=== PATIENT | male | born 1945 | race African-American/Black ===

== ENCOUNTER 2021-02-17 23:52 | Inpatient (IN) | payer OTHER, MEDICARE ==
[2021-02-18] MEDS ORDERED: Piperacillin/Tazobactam 4.5 GM VIAL ONE (01:05)
[2021-02-18] MEDS ORDERED: Morphine 4 MG/ML VIAL ONE (01:05)
[2021-02-18] MEDS ORDERED: Ondansetron PF 4 MG/2 ML Vial ONE (01:13)
[2021-02-18 01:42] LABS: #Eosinphils 0.2 thou/uL (0.0-0.7); #Lymphocytes 0.9 thou/uL (1.20-3.40); #Monocytes 0.9 thou/uL (0.11-0.59); #Neutrophils 11.2 thou/uL (1.40-6.50); %Basophils 0.2 % (0.0-1.0); %Eosinophils 1.4 % (0.0-10.0); %Lymphocytes 6.6 % (21.0-51.0); %Monocytes 6.5 % (0.0-10.0); %Neutrophils 85.4 % (42.0-75.0); Hemoglobin 10.9 g/dL (14.0-18.0); Mean Corpuscular HGB CONC 31.4 g/dL (32.0-36.0); Mean Corpuscular Hemoglobin 28.4 pg (27.0-31.0); Mean Corpuscular Volume 90.7 fL (78.0-98.0); Mean Platelet Volume 6.9 fL (7.4-10.4); Platelet Count 276 thou/uL (130-400); RBC Distribution Width 12.6 % (11.5-14.5); Red Blood Cell (RBC) Count 3.84 mill/uL (4.70-6.10); White Blood Cell (WBC) Count 13.1 thou/uL (4.8-10.8)
[2021-02-18 01:48] LABS: PTT 28.8 sec (22.9-36.1); Prothrombin Time 13.6 sec (12.0-14.7)
[2021-02-18 02:05] LABS: ALT (SGPT) 72 U/L (8-55); AST (SGOT) 84 U/L (5-34); Albumin 3.8 g/dL (3.4-4.8); Alkaline Phosphatase 55 U/L (40-110); Anion Gap 15 mmol/L (10-20); BUN (Urea Nitrogen) 39 mg/dL (8.4-25.7); Bilirubin, Total 0.3 mg/dL (0.2-1.2); Calc. Creatinine Clearance 0 mL/min (70-130); Calcium 8.9 mg/dL (7.8-10.44); Carbon Dioxide 25 mmol/L (23-31); Chloride 101 mmol/L (98-107); Globulin 3.1 g/dL (2.4-3.5); Glucose 203 mg/dL (83-110); Lipase 55 U/L (8-78); Potassium 4.5 mmol/L (3.5-5.1); Protein, Total 6.9 g/dL (5.8-8.1); Sodium 136 mmol/L (136-145)
[2021-02-18] MEDS ORDERED: hydrALAZINE 20 MG/ML VIAL SLOW IVP PRN (02:33)
[2021-02-18] MEDS ORDERED: Ondansetron PF 4 MG/2 ML Vial IVP PRN (02:33)
[2021-02-18] MEDS ORDERED: Dextrose 50% Abboject 50 ML SYRINGE SLOW IVP PRN ×3 (02:33→15:44)
[2021-02-18] MEDS ORDERED: Dextrose 5% in Water 1,000 ML IV PRN ×3 (02:33→15:44)
[2021-02-18] MEDS ORDERED: Morphine 2 MG/ML VIAL SLOW IVP PRN (02:40)
[2021-02-18] MEDS ORDERED: Cyclobenzaprine 10 MG TAB PO PRN (02:42)
[2021-02-18] MEDS ORDERED: Lactated Ringer's 1,000 ML IV SCH (02:45)
[2021-02-18 02:55] LABS: CKMB 14.7 ng/mL (0-6.6)
[2021-02-18] MEDS: Acetaminophen 325 MG TAB PO SCH ×3 (04:31→17:41)
[2021-02-18] MEDS: Ibuprofen 200 MG TAB PO SCH ×3 (04:32→17:45)
[2021-02-18 04:34] VITALS: BMI 32.6
[2021-02-18] MEDS ORDERED: Insulin Regular 300 UNITS/3 ML VIAL SC PRN (05:18)
[2021-02-18] MEDS ORDERED: TETANUS AND DIPHTHERIA TOX/PF 0.5 ML DISP.SYRIN IM ONE (09:00)
[2021-02-18] MEDS: Ascorbic Acid 500 mg Chewable Tablet PO SCH ×2 (09:03→21:17)
[2021-02-18] MEDS: Gabapentin 300 MG CAP PO SCH ×3 (09:03→21:16)
[2021-02-18] MEDS: Thiamine 100 MG TAB PO SCH (09:05)
[2021-02-18] MEDS: Insulin Regular 300 UNITS/3 ML VIAL SC PRN ×2 (09:18→12:45)
[2021-02-18] MEDS ORDERED: TETANUS, DIPHTHERIA TOX,ADULT (TDVAX) 0.5 ML VIAL IM ONE (11:45)
[2021-02-18] MEDS ORDERED: traMADol HCl 50 MG TAB PO SCH (12:15)
[2021-02-18] MEDS ORDERED: Iopamidol 370 76% 100 ML VIAL ONE (12:46)
[2021-02-18] MEDS ORDERED: Insulin Regular 300 UNITS/3 ML VIAL SC SCH (16:00)
[2021-02-18] MEDS: metFORMIN 500 MG TAB PO SCH (16:49)
[2021-02-18] MEDS: HumaLOG 300 UNITS/3 ML VIAL SC SCH (16:51)
[2021-02-18] MEDS: traMADol HCl 50 MG TAB PO SCH (17:43)
[2021-02-18] MEDS ORDERED: Lantus 1000 UNITS/10 ML VIAL SC SCH ×2 (21:00)
[2021-02-19] MEDS: traMADol HCl 50 MG TAB PO SCH ×5 (00:09→23:54)
[2021-02-19] MEDS: Acetaminophen 325 MG TAB PO SCH ×5 (00:09→23:53)
[2021-02-19 02:29] LABS: SARS-CoV-2 PCR by NAA Not Detected (NotDetected)
[2021-02-19] MEDS: Ibuprofen 200 MG TAB PO SCH ×3 (03:19→18:01)
[2021-02-19 06:27] LABS: #Eosinphils 0.5 thou/uL (0.0-0.7); #Lymphocytes 1.2 thou/uL (1.20-3.40); #Monocytes 1.2 thou/uL (0.11-0.59); #Neutrophils 8.6 thou/uL (1.40-6.50); %Basophils 0.3 % (0.0-1.0); %Eosinophils 4.2 % (0.0-10.0); %Lymphocytes 10.8 % (21.0-51.0); %Monocytes 10.5 % (0.0-10.0); %Neutrophils 74.2 % (42.0-75.0); Hemoglobin 11.2 g/dL (14.0-18.0); Mean Corpuscular HGB CONC 31.3 g/dL (32.0-36.0); Mean Corpuscular Hemoglobin 28.5 pg (27.0-31.0); Mean Corpuscular Volume 91.2 fL (78.0-98.0); Mean Platelet Volume 6.6 fL (7.4-10.4); Platelet Count 283 thou/uL (130-400); RBC Distribution Width 12.9 % (11.5-14.5); Red Blood Cell (RBC) Count 3.91 mill/uL (4.70-6.10); White Blood Cell (WBC) Count 11.5 thou/uL (4.8-10.8)
[2021-02-19 06:42] LABS: Lactic Acid 1.6 mmol/L (0.5-2.2)
[2021-02-19 06:48] LABS: ALT (SGPT) 58 U/L (8-55); AST (SGOT) 67 U/L (5-34); Albumin 3.9 g/dL (3.4-4.8); Alkaline Phosphatase 55 U/L (40-110); Anion Gap 13 mmol/L (10-20); BUN (Urea Nitrogen) 42 mg/dL (8.4-25.7); Bilirubin, Total 0.5 mg/dL (0.2-1.2); Calc. Creatinine Clearance 32 mL/min (70-130); Calcium 9.1 mg/dL (7.8-10.44); Carbon Dioxide 27 mmol/L (23-31); Chloride 97 mmol/L (98-107); Glucose 123 mg/dL (83-110); Potassium 5.4 mmol/L (3.5-5.1); Protein, Total 7.9 g/dL (5.8-8.1); Sodium 132 mmol/L (136-145)
[2021-02-19 06:52] LABS: Critical Call Chem Troponin I RESULT DECREASING; Troponin I 0.743 ng/mL (< 0.028)
[2021-02-19] MEDS: Sodium Chloride 0.9% 1,000 ML IV SCH ×3 (08:28→22:14)
[2021-02-19] MEDS: Gabapentin 300 MG CAP PO SCH ×3 (08:44→22:13)
[2021-02-19] MEDS: Ascorbic Acid 500 mg Chewable Tablet PO SCH ×2 (08:44→22:13)
[2021-02-19] MEDS: HumaLOG 300 UNITS/3 ML VIAL SC SCH ×3 (08:45→17:13)
[2021-02-19] MEDS: Thiamine 100 MG TAB PO SCH (08:45)
[2021-02-19] MEDS: metFORMIN 500 MG TAB PO SCH ×2 (08:45→16:32)
[2021-02-19] MEDS ORDERED: Lantus 1000 UNITS/10 ML VIAL SC SCH ×4 (09:00→21:00)
[2021-02-19] MEDS ORDERED: Amlodipine 10 MG TAB PO SCH (17:00)
[2021-02-20] MEDS: Ibuprofen 200 MG TAB PO SCH ×3 (03:08→18:04)
[2021-02-20] MEDS: traMADol HCl 50 MG TAB PO SCH ×4 (05:27→23:57)
[2021-02-20] MEDS: Acetaminophen 325 MG TAB PO SCH ×4 (05:28→23:57)
[2021-02-20 06:03] LABS: #Eosinphils 0.4 thou/uL (0.0-0.7); #Lymphocytes 0.9 thou/uL (1.20-3.40); #Monocytes 1.2 thou/uL (0.11-0.59); #Neutrophils 8.2 thou/uL (1.40-6.50); %Basophils 0.3 % (0.0-1.0); %Eosinophils 3.8 % (0.0-10.0); %Lymphocytes 7.9 % (21.0-51.0); %Monocytes 11.1 % (0.0-10.0); %Neutrophils 76.9 % (42.0-75.0); Hemoglobin 10.5 g/dL (14.0-18.0); Mean Corpuscular HGB CONC 31.7 g/dL (32.0-36.0); Mean Corpuscular Hemoglobin 28.8 pg (27.0-31.0); Mean Corpuscular Volume 90.6 fL (78.0-98.0); Mean Platelet Volume 7.1 fL (7.4-10.4); Platelet Count 237 thou/uL (130-400); RBC Distribution Width 12.9 % (11.5-14.5); Red Blood Cell (RBC) Count 3.66 mill/uL (4.70-6.10); White Blood Cell (WBC) Count 10.7 thou/uL (4.8-10.8)
[2021-02-20 06:27] LABS: Anion Gap 17 mmol/L (10-20); BUN (Urea Nitrogen) 46 mg/dL (8.4-25.7); Calc. Creatinine Clearance 39 mL/min (70-130); Calcium 8.8 mg/dL (7.8-10.44); Carbon Dioxide 19 mmol/L (23-31); Chloride 100 mmol/L (98-107); Glucose 151 mg/dL (83-110); Phosphorus 3.7 mg/dL (2.3-4.7); Potassium 5.2 mmol/L (3.5-5.1); Sodium 131 mmol/L (136-145)
[2021-02-20] MEDS: HumaLOG 300 UNITS/3 ML VIAL SC SCH ×3 (08:31→16:56)
[2021-02-20] MEDS: metFORMIN 500 MG TAB PO SCH ×2 (08:32→16:57)
[2021-02-20] MEDS: Thiamine 100 MG TAB PO SCH (08:33)
[2021-02-20] MEDS: Amlodipine 10 MG TAB PO SCH (08:33)
[2021-02-20] MEDS: Losartan 25 MG TAB PO SCH (08:33)
[2021-02-20] MEDS: Allopurinol 100 MG TAB PO SCH (08:33)
[2021-02-20] MEDS: Ascorbic Acid 500 mg Chewable Tablet PO SCH ×2 (08:33→20:47)
[2021-02-20] MEDS: Sodium Chloride 0.9% 1,000 ML IV SCH (08:35)
[2021-02-21] MEDS: Ibuprofen 200 MG TAB PO SCH (03:59)
[2021-02-21] MEDS: Acetaminophen 325 MG TAB PO SCH ×4 (05:23→23:33)
[2021-02-21] MEDS: traMADol HCl 50 MG TAB PO SCH ×4 (05:23→23:33)
[2021-02-21] MEDS: Ascorbic Acid 500 mg Chewable Tablet PO SCH ×2 (08:17→19:54)
[2021-02-21] MEDS: Thiamine 100 MG TAB PO SCH (08:17)
[2021-02-21] MEDS: metFORMIN 500 MG TAB PO SCH ×2 (08:17→16:50)
[2021-02-21] MEDS: Losartan 25 MG TAB PO SCH (08:18)
[2021-02-21] MEDS: Amlodipine 10 MG TAB PO SCH (08:18)
[2021-02-21] MEDS: Allopurinol 100 MG TAB PO SCH (08:18)
[2021-02-21] MEDS: Senokot S 8.6-50 MG TAB PO SCH (08:18)
[2021-02-21] MEDS: HumaLOG 300 UNITS/3 ML VIAL SC SCH ×4 (08:21→16:49)
[2021-02-21] MEDS ORDERED: Lidocaine 1% (PF) 30 ML VIAL ONE ×2 (09:30→09:32)
[2021-02-21] MEDS ORDERED: Lidocaine 1% (PF) 30 ML VIAL SC SCH (09:45)
[2021-02-21] MEDS ORDERED: Ketorolac Tromethamine 30 MG/ML VIAL IVP SCH (10:00)
[2021-02-21] MEDS: Ketorolac Tromethamine 30 MG/ML VIAL IVP SCH ×2 (11:04→17:55)
[2021-02-22] MEDS: traMADol HCl 50 MG TAB PO SCH ×2 (05:09→20:12)
[2021-02-22] MEDS: Acetaminophen 325 MG TAB PO SCH ×4 (05:10→23:27)
[2021-02-22] MEDS: HumaLOG 300 UNITS/3 ML VIAL SC SCH ×3 (08:31→18:03)
[2021-02-22] MEDS: Allopurinol 100 MG TAB PO SCH (08:32)
[2021-02-22] MEDS: Amlodipine 10 MG TAB PO SCH (08:32)
[2021-02-22] MEDS: Senokot S 8.6-50 MG TAB PO SCH (08:32)
[2021-02-22] MEDS: Ascorbic Acid 500 mg Chewable Tablet PO SCH ×2 (08:32→20:13)
[2021-02-22] MEDS: metFORMIN 500 MG TAB PO SCH (08:33)
[2021-02-22] MEDS: Thiamine 100 MG TAB PO SCH (08:33)
[2021-02-22] MEDS: Losartan 25 MG TAB PO SCH (08:33)
[2021-02-22] MEDS ORDERED: traMADol HCl 50 MG TAB PO SCH (09:00)
[2021-02-22] MEDS: Ibuprofen 200 MG TAB PO SCH ×2 (11:32→18:06)
[2021-02-22] MEDS ORDERED: Bisacodyl 10 MG SUPP PR SCH (12:15)
[2021-02-23] MEDS: Ibuprofen 200 MG TAB PO SCH ×3 (02:56→18:55)
[2021-02-23] MEDS: Acetaminophen 325 MG TAB PO SCH ×4 (05:15→23:26)
[2021-02-23] MEDS: Losartan 25 MG TAB PO SCH (09:21)
[2021-02-23] MEDS: Thiamine 100 MG TAB PO SCH (09:21)
[2021-02-23] MEDS: Amlodipine 10 MG TAB PO SCH (09:21)
[2021-02-23] MEDS: Senokot S 8.6-50 MG TAB PO SCH (09:21)
[2021-02-23] MEDS: Ascorbic Acid 500 mg Chewable Tablet PO SCH ×2 (09:22→21:12)
[2021-02-23] MEDS: traMADol HCl 50 MG TAB PO SCH ×2 (09:22→21:11)
[2021-02-23] MEDS: Allopurinol 100 MG TAB PO SCH (09:22)
[2021-02-23] MEDS: HumaLOG 300 UNITS/3 ML VIAL SC SCH ×3 (09:25→16:42)
[2021-02-23] MEDS: Bisacodyl 10 MG SUPP PR SCH (11:45)
[2021-02-24] MEDS: Ibuprofen 200 MG TAB PO SCH ×3 (03:32→18:27)
[2021-02-24] MEDS: Acetaminophen 325 MG TAB PO SCH ×4 (05:26→23:48)
[2021-02-24] MEDS: Thiamine 100 MG TAB PO SCH (08:12)
[2021-02-24] MEDS: Senokot S 8.6-50 MG TAB PO SCH (08:12)
[2021-02-24] MEDS: Losartan 25 MG TAB PO SCH (08:12)
[2021-02-24] MEDS: Amlodipine 10 MG TAB PO SCH (08:12)
[2021-02-24] MEDS: traMADol HCl 50 MG TAB PO SCH ×2 (08:12→20:04)
[2021-02-24] MEDS: Allopurinol 100 MG TAB PO SCH (08:12)
[2021-02-24] MEDS: Ascorbic Acid 500 mg Chewable Tablet PO SCH ×2 (08:12→20:04)
[2021-02-24] MEDS: Bisacodyl 10 MG SUPP PR SCH (08:21)
[2021-02-24] MEDS: Atorvastatin Calcium 10 MG TAB PO SCH (09:22)
[2021-02-24] MEDS: HumaLOG 300 UNITS/3 ML VIAL SC SCH ×3 (10:21→17:01)
[2021-02-25] MEDS: Ibuprofen 200 MG TAB PO SCH (04:06)
[2021-02-25] MEDS: Acetaminophen 325 MG TAB PO SCH (05:08)
[2021-02-25 07:58] VITALS: BP 120/65; TEMP 98.5
[2021-02-25] MEDS: Atorvastatin Calcium 10 MG TAB PO SCH (08:10)
[2021-02-25] MEDS: Thiamine 100 MG TAB PO SCH (08:10)
[2021-02-25] MEDS: Amlodipine 10 MG TAB PO SCH (08:10)
[2021-02-25] MEDS: Losartan 25 MG TAB PO SCH (08:11)
[2021-02-25] MEDS: Bisacodyl 10 MG SUPP PR SCH (08:11)
[2021-02-25] MEDS: traMADol HCl 50 MG TAB PO SCH (08:11)
[2021-02-25] MEDS: Senokot S 8.6-50 MG TAB PO SCH (08:11)
[2021-02-25] MEDS: Allopurinol 100 MG TAB PO SCH (08:11)
[2021-02-25] MEDS: Ascorbic Acid 500 mg Chewable Tablet PO SCH (08:11)
== END 2021-02-25 10:15 | disposition home health service (06) | DRG 200 ==
LOC: ERS 23:52 → IMCU/EMU 02-18 02:33 → SURG A 02-18 13:31
PROVIDERS: ADMIT Surgery; ATTEND Surgery
PROC: 0W9900Z Drainage of Right Pleural Cavity with Drainage Device, Open Approach (ICD-10-PCS; principal; 2021-02-21)
DX: S27.2XXA Traumatic hemopneumothorax, initial encounter (principal); N17.9 Acute kidney failure, unspecified; S22.41XA Multiple fractures of ribs, right side, initial encounter for closed fracture; E11.9 Type 2 diabetes mellitus without complications; I10 Essential (primary) hypertension; M10.9 Gout, unspecified; R79.89 Other specified abnormal findings of blood chemistry; R74.01 Elevation of levels of liver transaminase levels; Z20.822 Contact with and (suspected) exposure to COVID-19; V89.2XXA Person injured in unspecified motor-vehicle accident, traffic, initial encounter; Z98.890 Other specified postprocedural states; Z79.84 Long term (current) use of oral hypoglycemic drugs
CPT/HCPCS: 36415; 36416; 70450; 71045; 71260; 72125; 74177; 80048; 80053; 82553; 83605; 83690; 83735; 84100; 84484; 85025; 85610; 85730; 87635; 90714; 93005; 96365; 96375; G0390; J1815; J1885; J2270; J2405; J2543; J7620; Q9967; U0003; U0005

== ENCOUNTER 2021-03-20 23:26 | Inpatient (IN) | payer OTHER, MEDICARE ==
[2021-03-21] MEDS ORDERED: Dextrose 50% Abboject 50 ML SYRINGE SLOW IVP PRN ×2 (00:11→18:01)
[2021-03-21] MEDS ORDERED: Dextrose 5% in Water 1,000 ML IV PRN ×2 (00:11→18:01)
[2021-03-21] MEDS ORDERED: hydrALAZINE 20 MG/ML VIAL SLOW IVP PRN (00:11)
[2021-03-21] MEDS ORDERED: Ondansetron PF 4 MG/2 ML Vial IVP PRN (00:11)
[2021-03-21] MEDS ORDERED: Promethazine HCl 25 MG/ML VIAL IM PRN (00:11)
[2021-03-21] MEDS ORDERED: Lactated Ringer's 1,000 ML IV SCH (00:45)
[2021-03-21 00:56] LABS: #Eosinphils 0.1 thou/uL (0.0-0.7); #Lymphocytes 1.2 thou/uL (1.20-3.40); #Monocytes 0.9 thou/uL (0.11-0.59); #Neutrophils 6.3 thou/uL (1.40-6.50); %Basophils 0.5 % (0.0-1.0); %Eosinophils 1.1 % (0.0-10.0); %Lymphocytes 13.8 % (21.0-51.0); %Monocytes 10.7 % (0.0-10.0); %Neutrophils 73.9 % (42.0-75.0); Hemoglobin 8.1 g/dL (14.0-18.0); Mean Corpuscular HGB CONC 32.2 g/dL (32.0-36.0); Mean Corpuscular Hemoglobin 29.2 pg (27.0-31.0); Mean Corpuscular Volume 90.8 fL (78.0-98.0); Mean Platelet Volume 6.8 fL (7.4-10.4); Platelet Count 299 thou/uL (130-400); RBC Distribution Width 12.4 % (11.5-14.5); Red Blood Cell (RBC) Count 2.75 mill/uL (4.70-6.10); White Blood Cell (WBC) Count 8.5 thou/uL (4.8-10.8)
[2021-03-21 01:09] LABS: INR-International Normal Ratio 1.1; Prothrombin Time 14.8 sec (12.0-14.7)
[2021-03-21] MEDS ORDERED: Acetaminophen 325 MG TAB ONE ×3 (01:16→11:15)
[2021-03-21 01:21] LABS: ALT (SGPT) 24 U/L (8-55); AST (SGOT) 20 U/L (5-34); Alkaline Phosphatase 64 U/L (40-110); Anion Gap 13 mmol/L (10-20); BUN (Urea Nitrogen) 39 mg/dL (8.4-25.7); Bilirubin, Total 0.3 mg/dL (0.2-1.2); Calc. Creatinine Clearance 0 mL/min (70-130); Calcium 8.9 mg/dL (7.8-10.44); Carbon Dioxide 24 mmol/L (23-31); Chloride 104 mmol/L (98-107); Globulin 3.2 g/dL (2.4-3.5); Glucose 102 mg/dL (83-110); Potassium 4.2 mmol/L (3.5-5.1); Protein, Total 6.2 g/dL (5.8-8.1); Sodium 137 mmol/L (136-145)
[2021-03-21] MEDS: Acetaminophen 325 MG TAB PO SCH ×4 (01:30→18:01)
[2021-03-21] MEDS ORDERED: Lactated Ringer's 500 ML IV SCH (04:30)
[2021-03-21] MEDS ORDERED: Hydrocortisone Sod Succ/PF 100 mg/2 ml Vial IVP SCH (04:30)
[2021-03-21] MEDS ORDERED: Hydrocortisone Sod Succ/PF 100 mg/2 ml Vial ONE (04:50)
[2021-03-21] MEDS ORDERED: Dexamethasone 4 MG TAB PO SCH (08:00)
[2021-03-21] MEDS ORDERED: Lidocaine 1% w/Epinephrine 1:100K 20 ML VIAL ONE (08:20)
[2021-03-21 08:23] LABS: SARS-CoV-2 NAA Rapid Test Not Detected (NotDetected)
[2021-03-21] MEDS ORDERED: Ascorbic Acid 500 mg Chewable Tablet PO SCH (09:00)
[2021-03-21] MEDS ORDERED: Zinc Sulfate 220 MG CAP PO SCH (09:00)
[2021-03-21] MEDS ORDERED: Amlodipine 10 MG TAB PO SCH (09:00)
[2021-03-21] MEDS ORDERED: Losartan 25 MG TAB PO SCH (09:00)
[2021-03-21] MEDS ORDERED: Lidocaine 1% (PF) 30 ML VIAL ONE (09:00)
[2021-03-21] MEDS ORDERED: Famotidine/PF 20 mg/2ml Vial ONE (10:17)
[2021-03-21] MEDS: Cholecalciferol (Vitamin D3) 400 UNITS TAB PO SCH (11:10)
[2021-03-21] MEDS: Ascorbic Acid 500 mg Chewable Tablet PO SCH ×2 (11:10→19:49)
[2021-03-21] MEDS: Ferrous Sulfate 325 MG TAB PO SCH ×2 (11:11→18:01)
[2021-03-21] MEDS: Famotidine/PF 20 mg/2ml Vial SLOW IVP SCH (11:11)
[2021-03-21 17:06] VITALS: BMI 32.5
[2021-03-21] MEDS: Insulin Regular 300 UNITS/3 ML VIAL SC PRN (18:27)
[2021-03-21 20:29] LABS: SARS-CoV-2 IgG Ab Reactive (NonReactive); SARS-CoV-2 IgG Index 1.89 S/CO (< 1.40)
[2021-03-22] MEDS: Acetaminophen 325 MG TAB PO SCH ×4 (00:19→18:45)
[2021-03-22 06:57] LABS: #Lymphocytes 0.9 thou/uL (1.20-3.40); #Neutrophils 7.9 thou/uL (1.40-6.50); %Basophils 0.1 % (0.0-1.0); %Eosinophils 0.4 % (0.0-10.0); %Lymphocytes 8.8 % (21.0-51.0); %Monocytes 10.6 % (0.0-10.0); %Neutrophils 80.2 % (42.0-75.0); Hemoglobin 8.6 g/dL (14.0-18.0); Mean Corpuscular HGB CONC 33.4 g/dL (32.0-36.0); Mean Corpuscular Hemoglobin 29.8 pg (27.0-31.0); Mean Corpuscular Volume 89.2 fL (78.0-98.0); Mean Platelet Volume 7.2 fL (7.4-10.4); Platelet Count 260 thou/uL (130-400); RBC Distribution Width 12.6 % (11.5-14.5); Red Blood Cell (RBC) Count 2.88 mill/uL (4.70-6.10); White Blood Cell (WBC) Count 9.8 thou/uL (4.8-10.8)
[2021-03-22 07:10] LABS: Phosphorus 3.6 mg/dL (2.3-4.7)
[2021-03-22 07:13] LABS: Anion Gap 13 mmol/L (10-20); BUN (Urea Nitrogen) 32 mg/dL (8.4-25.7); Calc. Creatinine Clearance 55 mL/min (70-130); Calcium 9.3 mg/dL (7.8-10.44); Carbon Dioxide 27 mmol/L (23-31); Chloride 104 mmol/L (98-107); Glucose 131 mg/dL (83-110); Potassium 4.1 mmol/L (3.5-5.1); Sodium 140 mmol/L (136-145)
[2021-03-22] MEDS ORDERED: Hydrocortisone Sod Succ/PF 100 mg/2 ml Vial IVP SCH (07:45)
[2021-03-22] MEDS: Senokot S 8.6-50 MG TAB PO SCH ×2 (08:36→21:20)
[2021-03-22] MEDS: Ferrous Sulfate 325 MG TAB PO SCH ×2 (08:36→21:20)
[2021-03-22] MEDS: Cholecalciferol (Vitamin D3) 400 UNITS TAB PO SCH (08:36)
[2021-03-22] MEDS: Famotidine/PF 20 mg/2ml Vial SLOW IVP SCH (08:36)
[2021-03-22] MEDS: Ascorbic Acid 500 mg Chewable Tablet PO SCH ×2 (08:36→21:20)
[2021-03-22] MEDS: Enoxaparin Sodium 40 MG/0.4 ML SYRINGE SC SCH (08:36)
[2021-03-22] MEDS: Polyethylene Glycol 3350 17 GM Packet PO SCH (08:36)
[2021-03-22] MEDS: Insulin Regular 300 UNITS/3 ML VIAL SC PRN (12:27)
[2021-03-22] MEDS: Hydrocortisone Sod Succ/PF 100 mg/2 ml Vial IVP SCH ×2 (14:38→21:20)
[2021-03-23] MEDS: Acetaminophen 325 MG TAB PO SCH ×5 (00:24→23:45)
[2021-03-23] MEDS: Hydrocortisone Sod Succ/PF 100 mg/2 ml Vial IVP SCH ×3 (05:31→21:11)
[2021-03-23 05:50] LABS: #Eosinphils 0.1 thou/uL (0.0-0.7); #Lymphocytes 1.7 thou/uL (1.20-3.40); #Monocytes 1.2 thou/uL (0.11-0.59); #Neutrophils 7.8 thou/uL (1.40-6.50); %Basophils 0.2 % (0.0-1.0); %Eosinophils 0.8 % (0.0-10.0); %Lymphocytes 15.8 % (21.0-51.0); %Monocytes 11.1 % (0.0-10.0); %Neutrophils 72.2 % (42.0-75.0); Hemoglobin 7.7 g/dL (14.0-18.0); Mean Corpuscular HGB CONC 31.7 g/dL (32.0-36.0); Mean Corpuscular Hemoglobin 28.7 pg (27.0-31.0); Mean Corpuscular Volume 90.7 fL (78.0-98.0); Mean Platelet Volume 7.3 fL (7.4-10.4); Platelet Count 320 thou/uL (130-400); RBC Distribution Width 12.8 % (11.5-14.5); Red Blood Cell (RBC) Count 2.69 mill/uL (4.70-6.10); White Blood Cell (WBC) Count 10.7 thou/uL (4.8-10.8)
[2021-03-23] MEDS: Cholecalciferol (Vitamin D3) 400 UNITS TAB PO SCH (08:40)
[2021-03-23] MEDS: Polyethylene Glycol 3350 17 GM Packet PO SCH (08:40)
[2021-03-23] MEDS: Ferrous Sulfate 325 MG TAB PO SCH ×2 (08:40→21:12)
[2021-03-23] MEDS: Enoxaparin Sodium 40 MG/0.4 ML SYRINGE SC SCH (08:40)
[2021-03-23] MEDS: Senokot S 8.6-50 MG TAB PO SCH ×2 (08:40→21:12)
[2021-03-23] MEDS: Ascorbic Acid 500 mg Chewable Tablet PO SCH ×2 (08:40→21:12)
[2021-03-24] MEDS: Hydrocortisone Sod Succ/PF 100 mg/2 ml Vial IVP SCH (05:30)
[2021-03-24] MEDS: Acetaminophen 325 MG TAB PO SCH (05:30)
[2021-03-24] MEDS: Polyethylene Glycol 3350 17 GM Packet PO SCH (09:05)
[2021-03-24] MEDS: Enoxaparin Sodium 40 MG/0.4 ML SYRINGE SC SCH (09:05)
[2021-03-24] MEDS: Senokot S 8.6-50 MG TAB PO SCH (09:06)
[2021-03-24] MEDS: Ferrous Sulfate 325 MG TAB PO SCH (09:06)
[2021-03-24] MEDS: Cholecalciferol (Vitamin D3) 400 UNITS TAB PO SCH (09:06)
[2021-03-24] MEDS: Ascorbic Acid 500 mg Chewable Tablet PO SCH (09:06)
[2021-03-24 11:54] VITALS: BP 136/72; TEMP 98.1
== END 2021-03-24 11:52 | disposition home or self-care (01) | DRG 200 ==
LOC: ERS 23:26 → ERHOLD 03-21 00:20 → SURG A 03-21 15:32
PROVIDERS: ADMIT Specialist; ATTEND Specialist
PROC: 0W9B00Z Drainage of Left Pleural Cavity with Drainage Device, Open Approach (ICD-10-PCS; principal; 2021-03-21)
DX: S27.1XXA Traumatic hemothorax, initial encounter (principal); D62 Acute posthemorrhagic anemia; I31.2 Hemopericardium, not elsewhere classified; E78.5 Hyperlipidemia, unspecified; I12.9 Hypertensive chronic kidney disease with stage 1 through stage 4 chronic kidney disease, or unspecified chronic kidney disease; E11.22 Type 2 diabetes mellitus with diabetic chronic kidney disease; N18.9 Chronic kidney disease, unspecified; M10.9 Gout, unspecified; Z79.84 Long term (current) use of oral hypoglycemic drugs; Z86.16 Personal history of COVID-19; V89.2XXA Person injured in unspecified motor-vehicle accident, traffic, initial encounter
CPT/HCPCS: 36415; 36416; 71045; 80048; 80053; 82533; 83735; 83880; 84100; 84484; 85025; 85610; 85730; 86769; 86850; 86900; 86901; 93005; 93010; 93970; 94760; 96372; 96374; J0690; J1650; J1720; J1815; J2001; J8540; S0028; U0002; U0005